=== PATIENT | female | born 2005 | race Caucasian/White ===

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

== ENCOUNTER 2023-07-20 17:47 | Emergency (ER) | payer MEDICAID, SELFPAY ==
[2023-07-20 18:10] VITALS: BP 156/92; PULSE 98; RESP 18; TEMP 36.9; O2SAT 97; BMI 52.5
--- NOTE | 2023-07-20 18:43 | EXP.UTC ---
Discharge Plan Disposition Patient Disposition: Home, Self-Care Condition: Good Prescriptions Prescriptions: New vnektudkmtlbani-jbqwsqsqh-SI [Bromfed DM] 2-30-10 mg/5 mL Syrup 10 ml PO Q4H PRN (Reason: Cough) Qty: 200 0RF methylprednisolone [Medrol (Jatin)] 4 mg tablets,dose pack See Rx Instructions .Route .COMPLEX 6 Days Qty: 21 0RF Rx Instructions: taper pack; amoxicillin-pot clavulanate 875-125 mg Tablet 1 tab PO Q12H Qty: 20 0RF No Action fluticasone propionate 120 SPR/BOT bottle 1 spr NS DAILY 7 Days Qty: 1 0RF jrbipwhsebtwkwy-fqjftiopu-AU [Bromfed DM] 2-30-10 mg/5 mL Syrup 5 ml PO Q6H PRN (Reason: Cough) Qty: 240 0RF Referrals Follow up/Referrals: Provider,Referral, MD [Primary Care Provider] - See instructions Activity Restrictions/Add. Instructions Additional Instructions/Restrictions: Start antibiotic today. Be sure to complete entire prescription even if feeling better Monitor temp. Tylenol every 4 hours as needed and / or ibuprofen every 6 hours as needed ( As long as your primary care physician has told you that it ok to take both. For fever/aches/pains ER if no less than 101 despite Tylenol or Motrin Humidifier/vaporizer or hot steamy shower *Bromfed may cause drowsiness. Know how it effects you (your child) before driving, caring for small child, or sending your child to school. Not other antihistamines/allergy medications while taking bromfed *Start steroid today. Helps with inflammation therefore, cough and wheezing. Follow directions on the package. Reviewed side effects. Patient reports taking them before. Follow up IMMEDIATELY for new or worsening of symptoms OR no noticeable improvement over the next 48-72 hours. 911 immediately for any life threatening symptoms such as chest pain or difficulty breathing Clinical Impressions Clinical Impression: Bronchitis Sinusitis Qualifiers: Sinusitis location: unspecified location Chronicity: unspecified Qualified Code(s): J32.9 - Chronic sinusitis, unspecified Instructions Patient Instructions: DI for Sinusitis, Acute Bronchitis Discharge ED Provider: Armida Gamez [facility] General Stated complaint: bilateral ear pain Mode of Arrival: Ambulatory Source of Information: Patient Limitations: No Limitations Time Seen by Provider: 07/20/23 18:43 Description of Symptoms (Recalled from Triage Doc. by RN): Was here 3 weeks ago and just has not gotten better. ear pain, Sob, and chest congestion. HEENT Symptoms (Recalled from RN notes): Yes Resp Symptoms (Recalled from RN notes): No Skin Symptoms (Recalled from RN notes): No MS Symptoms (Recalled from RN notes): No Functional Status (Recalled from RN notes): n/a History of Present Illness Provider Complaint: Patient states that she has been having sinus congestion and pressure, bilateral ear pain and pressure, cough and some congestion states that she feels like her ears are full and having pressure Related Data Previous Rx's Medication Instructions Recorded fluticasone propionate 50 1 spr NS DAILY 7 days ##1 01/07/21 mcg/actuation nasal spray,suspension ctvqslzznltqrsm-sznzxvhfuvwqlmp-JR 5 ml PO Q6H PRN Cough #240 mL 07/08/22 2 mg-30 mg-10 mg/5 mL oral syrup (Bromfed DM) amoxicillin 875 mg-potassium 1 tab PO Q12H #20 tabs 07/20/23 clavulanate 125 mg tablet useofywdmazgzwm-ysotveshqweathy-OC 10 ml PO Q4H PRN Cough #200 mL 07/20/23 2 mg-30 mg-10 mg/5 mL oral syrup (Bromfed DM) methylprednisolone 4 mg tablets in See Rx Instructions .Route 07/20/23 a dose pack (Medrol (Jatin)) .COMPLEX 6 days #21 tabs Allergies Allergy/AdvReac Type Severity Reaction Status Date / Time No Known Allergies Allergy Verified 07/20/23 18:31 Worker's Comp Is this a Worker's Comp case?: No [facility] Disclaimer: The information contained in this section may have been updated after the patient was seen, as this information can
[2023-07-20 19:16] VITALS: BP 156/92; PULSE 98; RESP 18; TEMP 36.9; O2SAT 97
== END 2023-07-20 19:16 | disposition home or self-care (01) ==
PROVIDERS: Emergency Provider Nurse Practitioner
DX: J20.9 Acute bronchitis, unspecified (principal); J01.90 Acute sinusitis, unspecified; H92.03 Otalgia, bilateral; R51.9 Headache, unspecified; R09.81 Nasal congestion; R05.9 Cough, unspecified; R09.89 Other specified symptoms and signs involving the circulatory and respiratory systems
CPT/HCPCS: 99212; 99214; G0463